=== PATIENT | female | born 1950 | race Caucasian/White ===

== ENCOUNTER → 2017-07-06 | Outpatient (CLI) | payer OTHER | END | disposition home or self-care (01) | LOC: EDBD → C.LABPBG 12:55 | PROVIDERS: ATTEND Urology | DX: R31.29 Other microscopic hematuria (principal) ==

== ENCOUNTER → 2018-02-07 | Outpatient (CLI) | payer OTHER | END | disposition home or self-care (01) | LOC: C.LABSPEC 13:45 | PROVIDERS: ATTEND Urology | DX: R31.29 Other microscopic hematuria (principal) ==

== ENCOUNTER → 2018-02-08 | Outpatient (CLI) | payer OTHER ==
[2018-02-08 13:44] LABS: BASO % 0.4 %; BASO ABS # 0.03 K/uL (0-0.2); EOS % 3.5 %; EOS ABS # 0.24 K/uL (0-0.5); HEMATOCRIT 41.1 % (37-47); HEMOGLOBIN 13.2 g/dL (12.0-16.0); IG# 0.01 K/uL (0.00-0.02); LYMPH % 34.6 %; LYMPH ABS # 2.39 K/uL (1.2-3.4); MEAN CELL VOLUME 92.2 fL (80-100); MEAN CORPUSCULAR HEMOGLOBIN 29.6 pg (25-34); MEAN CORPUSCULAR HGB CONC 32.1 g/dl (32-36); MEAN PLATELET VOLUME 11.3 fL (7.4-10.4); MONO ABS # 0.69 K/uL (0.11-0.59); NEUT % 51.4 %; NEUT ABS # 3.55 K/uL (1.4-6.5); PLATELET COUNT 266 K/uL (130-400); RED CELL DISTRIBUTION WIDTH CV 14.5 % (11.5-14.5); RED CELL DISTRIBUTION WIDTH SD 49.1 fL (36.4-46.3); WHITE BLOOD COUNT 6.91 K/uL (4.8-10.8)
[2018-02-08 14:50] LABS: ALT/SGPT 20 U/L (12-78); AST/SGOT 21 U/L (15-37); BLOOD UREA NITROGEN 13 mg/dl (7-18); CALCIUM 9.2 mg/dl (8.5-10.1); CARBON DIOXIDE 27 mmol/L (21-32); CHOLESTEROL 206 mg/dl (0-200); CREATININE 0.97 mg/dl (0.60-1.20); GLUCOSE 91 mg/dl (70-99); LDL CHOLESTEROL CALCULATED 104 mg/dl; POTASSIUM 3.9 mmol/L (3.5-5.1); SODIUM 141 mmol/L (136-145)
== END | disposition home or self-care (01) ==
LOC: C.LABPBG 10:33
PROVIDERS: ATTEND Family Medicine
DX: E78.00 Pure hypercholesterolemia, unspecified (principal); E03.9 Hypothyroidism, unspecified; F41.8 Other specified anxiety disorders; E87.6 Hypokalemia; R42 Dizziness and giddiness